=== PATIENT | male | born 1990 | race Caucasian/White ===

== ENCOUNTER 2019-09-02 21:32 | Emergency (ER) | payer OTHER, MEDICAID, SELFPAY ==
--- NOTE | 2019-09-02 21:42 | ED_ITS ---
HPI - Dental/Oral General Chief complaint: Dental/Oral Stated complaint: Tooth Pain Time Seen by Provider: 09/02/19 21:35 Source: patient Mode of arrival: Ambulatory Limitations: no limitations History of Present Illness HPI Narrative: 29-year-old male daily smoker with history of dental problems presents with a chief complaint of a broken filling that occurred yesterday and subsequent facial swelling and pain. He denies any numbness, tingling or weakness. He denies any discharge. He denies any fever, chills nor nausea or vomiting. He has not yet called his dentist. MD Complaint: tooth pain and tooth injury Related Data Previous Rx's Medication Instructions Recorded clindamycin HCl 300 mg PO Q6H 7 Days #28 cap 09/02/19 ibuprofen 600 mg PO TID PRN #20 tab 09/02/19 Allergies Allergy/AdvReac Type Severity Reaction Status Date / Time Penicillins Allergy Verified 09/02/19 21:45 Review of Systems Constitutional Constitutional: Denies chills, Denies fatigue, Denies fever(s), Denies frequent falls, Denies lethargy and Denies weakness Eyes Eyes: Denies change in vision, Denies eye discharge, Denies irritation and Den ies loss of vision ENT Ears, Nose, Mouth, and Throat: Denies change in voice, Reports dental pain, Denies dizziness, Denies neck pain, Denies sore throat and Denies throat swelling Cardiovascular Cardiovascular: Denies chest pain, Denies irregular heart rhythm, Denies light headedness, Denies palpitations, Denies dyspnea, Denies dyspnea on exertion and Denies orthopnea Respiratory Respiratory: Denies cough, Denies dyspnea, Denies dyspnea on exertion and Denies wheezing Gastrointestinal Gastrointestinal: Denies abdominal pain, Denies change in bowel habits, Denies diarrhea, Denies nausea and Denies vomiting Musculoskeletal Musculoskeletal: Denies neck pain and Denies numbness Integumentary/Breasts Skin/Breast: Denies pruritus, Denies erythema, Denies rash and Denies wounds Neurologic Neurologic: Denies behavioral changes, Denies confusion, Denies dizziness, Denies frequent falls, Denies loss of vision, Denies numbness and Denies weakness Psychiatric Psychiatric: Denies anxiety, Denies behavioral changes, Denies confusion, Denies depression, Denies homicidal ideation and Denies suicidal ideation Endocrine Endocrine: Denies fatigue, Denies flushing and Denies palpitations Hematologic/Lymphatic Hematologic/Lymphatic: Denies easy bruising Allergic/Immunologic Allergic/Immunologic: Denies urticaria, Denies throat swelling and Denies wheezing Patient History Social History Smoking Status: Current every day smoker Smoking Status: Current every day smoker Substance Use Type: former substance user Exam Narrative Exam Narrative: GEN: AOx3 and in mild distress EYES: Pupils are equal, round, and reactive to light and accommodation. Extraoccular muscles are intact bilaterally. There is no subconjunctival hemorrhage or exudate. FACE: right lower jaw swelling and pain. Fractured tooth with fractured filling, no intraoral swelling or suggestion of abscess. Airway patent. No tongue, lip or throat swelling CHEST: Lungs are clear to auscultation bilaterally and free of wheezes, rales, or rhonchi. Heart rate is regular rhythm, there are no murmurs, clicks, rubs, or gallops. There is no chest wall tenderness. ABD: Abdomen is soft and nontender. There is no guarding or rebound. Bowel sounds are normal in all 4 quadrants. There is no mass or organomegaly. EXT: Full painless ROM of all extremities with no loss of sensation or strength. SKIN: Warm, pink, and dry. No erythema or rash Initial Vital Signs Initial Vital Signs: Vital Signs Temperature 97.8 F 09/02/19 21:45 Pulse Rate 71 09/02/19 21:45 Respiratory Rate 16 09/02/19 21:45 Blood Pressure 124/74 09/02/19 21:45 Pulse Oximetry 100 09/02/19 21:45 Procedures Nerve Block Nerve Block 1: Time out performed: No Local Anesthetic: bupivacaine 0.25% and with epi Amount of anesthesia used (mL): 4 Side: right Intraoral Nerve Block: inferior alveolar Procedure Successful: Yes Patient Tolerated Procedure: Well Complications: none Course Orders Ordered: Discontinued Medications Bupivacaine HCl/Epinephrine Bitart (Sensorcaine 0.5% W/ Epi (Pf)) 5 ml SUBCUT NOW ONE Stop: 09/02/19 21:49 Last Admin: 09/02/19 21:51 Dose: 5 ml Documented by: MMCFARL Clindamycin HCl (Cleocin) 300 mg PO NOW ONE Stop: 09/02/19 21:49 Last Admin: 09/02/19 21:52 Dose: 300 mg Documented by: DINA Vital Signs Vital signs: Vital Signs - 8 hr 09/02/19 21:45 09/02/19 22:06 Temperature 97.8 F Pulse Rate 71 70 Respiratory Rate 16 Blood Pressure 124/74 124/74 Pulse Oximetry 100 100 Discharge Plan Departure Patient Disposition: Home Clinical Impression: Toothache, Dental abscess Discharge Date/Time: 09/02/19 22:06 Instructions: Tooth Decay, Tooth Abscess, DI for Dental Pain Activity Restrictions/Additional Instructions: *You have been diagnosed with [dental pain, cracked tooth and dental abscess] *What to do: *Take medications as directed *Follow up with your dentist in 2-3 days, call for an appointment. Let them know you were seen in the Emergency Department and that we ask that you be seen in follow up *Return to ER if you should have any new, worsening or concerning symptoms, such as [fever, shaking chills, persistent vomiting or other bothersome symptoms] Prescriptions: New clindamycin HCl 300 mg capsule 300 mg PO Q6H 7 Days Qty: 28 RF: 0 ibuprofen 600 mg tablet 600 mg PO TID PRN (Reason: pain) Qty: 20 RF: 0 Referrals: Vamshi Ann DMD [Physician] -
[2019-09-02 21:45] VITALS: BP 124/74; PULSE 71; RESP 16; TEMP 36.6; O2SAT 100; BMI 21.7
[2019-09-02] MEDS: BUPIVACAINE 0.5% W/ EPI (PF) 30 ML VIAL 5 ML SUBCUT (21:51)
[2019-09-02] MEDS: CLINDAMYCIN 150 MG CAPSULE 300 MG PO (21:52)
[2019-09-02 22:06] VITALS: BP 124/74; PULSE 70; O2SAT 100
== END 2019-09-02 22:06 | disposition home or self-care (01) ==
PROVIDERS: Emergency Provider Emergency Medicine
DX: K04.7 Periapical abscess without sinus (principal); K03.81 Cracked tooth
CPT/HCPCS: 64450; 99282; 99283

== ENCOUNTER 2019-09-12 12:18 | Emergency (ER) | payer OTHER, MEDICAID, SELFPAY ==
[2019-09-12 12:26] VITALS: BP 125/73; PULSE 101; RESP 15; TEMP 36.9; O2SAT 96; BMI 21.7
[2019-09-12 12:42] VITALS: BMI 21.7
--- NOTE | 2019-09-12 12:43 | ED_ITS ---
HPI - Psych <Arina Valiente PA-C - Last Filed: 09/12/19 20:43> General Chief Complaint: Toxicology Problem Stated Complaint: clear for detox Time Seen by Provider: 09/12/19 12:26 Source: patient Mode of arrival: Ambulatory Limitations: no limitations History of Present Illness HPI Narrative: This is a 29-year-old male every day smoker with a history of recent dental abscess, and skilled nursing opioid abuse who presents to the emergency department seeking detox from heroin and opioids. He states that his last use was 5 or 6:00 p.m. last night and he normally uses heroin multiple times per day he says that most of the time he smokes it and occasionally he snorts it. He currently feels he is having some mild withdrawal symptoms including some abdominal discomfort and just not feeling well and having no appetite. He reports he has been trying to stop using recently and earlier this week he tried to take Suboxone which he had left over from a previous prescription to help him transition and he became very sick he felt so bad that he ended up taking a Valium and then when he presented to attempt to different ED to get a bed for detox was told that because he had benzos in his system this would not be possible, this was 2 days ago. He presents today hoping there is now a bed available, and that he will no longer have benzos in his system. He reports he does not normally use Valium and this was a 1 time event. He says that he successfully was on Suboxone for 3 years and he is hoping to go to detox and transition back to Suboxone because it worked for a while for him. He states he has never been to detox he has been trying to self detox but this has not been working so he ?wants to try something new. He reports he had a severe snowboarding back injury in his early 20s for which he ended up taking opioids for a long period of time, and since that time he has had a problem with opioid abuse. He denies any other symptoms besides mild withdrawal symptoms and says he has been in his normal state of health, and has had no exposure to anyone known or suspected to have COVID-19 complaint: other (wants detox) Onset (ago): day(s) (last use 18 hrs ago) Duration: changing over time History of same: Yes Relieving factors: none Exacerbating factors: none Context: recent drug abuse Associated psychiatric symptoms: none Associated symptoms: denies other symptoms and other (abdominal discomfort) Treatments prior to arrival: none Related Data Previous Rx's Medication Instructions Recorded ibuprofen 600 mg PO TID PRN #20 tab 09/02/19 Allergies Allergy/AdvReac Type Severity Reaction Status Date / Time Penicillins Allergy Verified 09/12/19 12:26 Review of Systems <Arina Valiente PA-C - Last Filed: 09/12/19 20:43> Review of Systems Narrative: GENERAL: Denies chills, fatigue, malaise, fever, sweats, generally ?does not feel good?. HEENT: Denies sinus pain, ear pain, sore throat, difficulty swallowing, dizziness. RESPIRATORY: Denies dyspnea, cough, wheezing, hemoptysis, sputum. CARDIOVASCULAR: Denies chest pain, palpitations, orthopnea, edema, GASTROINTESTINAL: Positive for mild nausea, abdominal discomfort, negative for vomiting, abdominal pain, diarrhea, constipation, melena. : Denies dysuria, frequency, incontinence, hematuria, urinary retention. MUSCULOSKELETAL: denies weakness, joint pain, or bony pain SKIN: Denies rash, skin lesions, or other NEUROLOGIC: Denies weakness, headache, numbness, change in speech, confusion, seizures, incoordination. PSYCHIATRIC: No concerning psychosocial issues. 12 point review of systems is negative except for those stated above Patient History <Arina Valiente PA-C - Last Filed: 09/12/19 20:43> Social History Smoking Status: Current every day smoker Smoking Status: Current every day smoker alcohol intake frequency: 0-2 drinks per day Substance Use Type: former substance user Exam <Arina Valiente PA-C - Last Filed: 09/12/19 20:43> Narrative Exam Narrative: GENERAL: 29 year old patient appears stated age. Well-nourished, well-developed patient, in mild distress. HEAD: Atraumatic. Normocephalic. EYES: Pupils equal round and reactive. Extraocular motions intact. No scleral icterus. No injection or drainage. ENT: Nose without bleeding, purulent drainage. Throat without erythema, tonsillar hypertrophy or exudate. Airway patent. NECK: Trachea midline. Non tender CARDIOVASCULAR: Regular rate and rhythm without murmurs, gallops, or rubs. RESPIRATORY: Clear to auscultation. Breath sounds equal bilaterally. No wheezes, rales, or rhonchi. GASTROINTESTINAL: Abdomen soft, non-tender, nondistended. EXTREMITIES: No edema or joint tenderness. BACK: Nontender without deformity or crepitance. No flank tenderness. NEURO: AOx3. SKIN: No rash or erythema of visible areas Initial Vital Signs Initial Vital Signs: Vital Signs Temperature 98.4 F 09/12/19 12:26 Pulse Rate 101 H 09/12/19 12:26 Respiratory Rate 15 09/12/19 12:26 Blood Pressure 125/73 09/12/19 12:26 Pulse Oximetry 96 09/12/19 12:26 <Angelina Hwang DO - Last Filed: 09/17/19 07:16> Initial Vital Signs Initial Vital Signs: Vital Signs Temperature 98.4 F 09/12/19 12:26 Pulse Rate 101 H 09/12/19 12:26 Respiratory Rate 15 09/12/19 12:26 Blood Pressure 125/73 09/12/19 12:26 Pulse Oximetry 96 09/12/19 12:26 Scores <Arina Valiente PA-C - Last Filed: 09/12/19 20:43> GCS Grandin coma scale eye opening: Spontaneous Grandin coma scale verbal response: Orientated Fredrick coma scale motor response: Obey commands Grandin coma scale total score: 15 Course <JOSE F Contreras Last Filed: 09/12/19 20:43> Course Course Narrative: Though I discussed the fact that we would need to get labs from the patient, when the car in went in and advised him she was going to draw his blood, he said that he was unwilling to have this done. She discussed the importance of this in order to medically clear him for detox especially because he recently used heroin and is likely going into withdrawals, and he reportedly stood up and the left said that he was going to refuse to have his blood drawn. The patient eloped and did not return. Social work discussed the patient with me and did not have a chance to see them prior to the patient eloping. Orders Ordered: ED Orders 09/12/19 12:37 Consult to [employer]ARD OPERATOR - [employer] Urgent Vital Signs Vital signs: Vital Signs - 8 hr 09/12/19 12:26 Temperature 98.4 F Pulse Rate 101 H Respiratory Rate 15 Blood Pressure 125/73 Pulse Oximetry 96 <Angelina Hwang DO - Last Filed: 09/17/19 07:16> Orders Ordered: ED Orders 09/12/19 12:37 Consult to [employer] KEYBOARD OPERATOR - [employer] Delivery Driver Urgent Vital Signs Vital signs: Vital Signs - 8 hr 09/12/19 12:26 Temperature 98.4 F Pulse Rate 101 H Respiratory Rate 15 Blood Pressure 125/73 Pulse Oximetry 96 MDM - Psych <Arina Valiente PA-C - Last Filed: 09/12/19 20:43> Differential Diagnosis Differential diagnosis: Likely other (Opioid withdrawal, seeks detox, heroin abuse) Medical Records Attestation: I reviewed the patient's medical records. Lab Data Attestation: I reviewed the patient's lab results. Labs: Urine Dip Bedside Urine Glucose Negative Bedside Urine Bilirubin + 1 Bedside Urine Ketone +/- 5 Urine Specific [place] 1.025 Bedside Urine Occult Blood - Negative Bedside Urine pH 6.0 Bedside Urine Protein +/- 15 Bedside Urine Urobilinogen - Negative Bedside Urine Nitrite - Negative Bedside Urine Leukocytes - Negative Esterase [facility] Narrative Medical decision making narrative: This is a 29-year-old gentleman with a history recent dental abscess, heroin use last at fiber 6:00 p.m. last night, who presents to the emergency department seeking admission to a facility for detox. Patient was unwilling to submit to labs to do a full medical evaluation, and eloped prior to evaluation by social Work. <Angelina Hwang DO - Last Filed: 09/17/19 07:16> Lab Data Labs: Urine Dip Bedside Urine Glucose Negative Bedside Urine Bilirubin + 1 Bedside Urine Ketone +/- 5 Urine Specific [place] 1.025 Bedside Urine Occult Blood - Negative Bedside Urine pH 6.0 Bedside Urine Protein +/- 15 Bedside Urine Urobilinogen - Negative Bedside Urine Nitrite - Negative Bedside Urine Leukocytes - Negative Esterase Discharge Plan Departure Patient Disposition: Left Against Medical Advice Clinical Impression: Patient left before treatment completed Discharge Date/Time: 09/12/19 13:04 Prescriptions: No Action ibuprofen 600 mg tablet 600 mg PO TID PRN (Reason: pain) Qty: 20 RF: 0 Stand Alone Forms: Against Medical Advice <Angelina Hwang DO - Last Filed: 09/17/19 07:16> Cosign ED Attending Cosignature Attestation: I was immediately available in the department for consultation. Documentation has been reviewed. I agree with assessment and plan.
--- NOTE | 2019-09-12 12:59 | PC.NURSE ---
pt refusing blood draw for medical clearance. pt states she just talked to staff at [facility] they told him he did not need blood draw. phoned [facility], Russell confirmed they do need blood work [place] because he is detoxing from benzo's, then russell was heard asking other individuals in the office if someone had told pt he did not need blood work done, those individuals confirmed no, no one around her had stated that to the patient. again spoke with patient regarding blood work needing to be done. pt getting upset states they didnt need blood work for my friend, then [facility]. explained to patient today Russell from [facility] reports they will not accept him for detox without blood work. pt upset stood up from bed and left department.
== END 2019-09-12 13:04 | disposition left against medical advice (07) ==
PROVIDERS: Emergency Provider Student in an Organized Health Care Education/Training Program
DX: F19.10 Other psychoactive substance abuse, uncomplicated (principal)
CPT/HCPCS: 81003; 99282